=== PATIENT | female | born 1990 | race Caucasian/White ===

== ENCOUNTER 2018-02-24 06:23 | Emergency (ER) | payer SELFPAY ==
--- NOTE | 2018-02-24 06:53 | ED Physician Documentation ---
Sore Throat/Dental Pain - HPI Stated Complaint: sore throat Chief Complaint: Sore Throat Onset: days ago (5) Context: Possible Infection Associated Symptoms: chills, sore throat, moderate, L ear pain. denies: fever Worsened By: nothing Further Comments: yes (she states she started with sore throat on Sunday. She has had chills and her left ear hurting. She has a strong history of abcess. She is able to swallow her secretions) - ROS CONST: no problems CVS/RESP: denies: shortness of breath GI/: denies: nausea, vomiting MS/SKIN/LYMPH: denies: rash NEURO/PSYCH: denies: headache - PAST HX Past History: tonsillectomy Immunizations: UTD Allergies/Adverse Reactions: Allergies Allergy/AdvReac Type Severity Reaction Status Date / Time latex Allergy Rash Verified 02/24/18 06:58 Home Medications: Ambulatory Orders Medication Instructions Recorded NK [NK] 02/24/18 - SOCIAL HX Smoking History: non-smoker Alcohol Use: none Drug Use: none - FAMILY HX Family History: No - VITAL SIGNS Vital Signs: Vital Signs Temp Pulse Resp BP Pulse Ox 97.9 F 93 H 18 96/62 99 02/24/18 06:23 02/24/18 06:23 02/24/18 06:23 02/24/18 06:23 02/24/18 06:23 - REVIEWED ASSESSMENTS Nursing Assessment Reviewed: Yes Vitals Reviewed: Yes ED Results Lab/Radiology - Orders Orders: ED Orders Category Date Time Status methylPREDNISolone ACETATE [Depo-Medrol] Med 02/24/18 06:56 Once 40 mg IM NOW ONE Sore throat Physical Exam - EXAM General Appearance: no acute distress, alert Head/Neck: head nml inspection, no lymphadenopathy. No: cervical lymphadenopathy Eyes: eyes nml inspection, PERRL Mouth/Throat: lips nml, gums nml, no air way problems, pharyngeal erythema. No : drooling Ear/Nose: nml inspection Respiratory: no resp. distress, breath sounds nml CVS: reg. rate & rhythm, heart sounds nml Abdomen: soft, normal bowel sounds Extremities: non-tender Skin: warm/dry, normal color Neuro/Psych: oriented x3, mood/affect nml Discharge Clincal Impression: Strep sore throat Comments: 1. Clindamycin 300 mg take 1 by mouth TID x 10 days 2. Medrol Dose pack 4 mg - take as directed start 02.25.2018 3. Warm salt water gargles 4. Warm tea with honey 5. Tylenol or Ibuprofen as needed for pain or fever 6. See PCP Sunday 7. Return to ER for any further symptoms of concern Condition: Stable Disposition: 01 HOME, SELF-CARE Decision to Admit: NO Date of Decison to Admit: 02/24/18 Decision Time: 07:02
[2018-02-24 06:55] VITALS: BP 96/62
[2018-02-24] MEDS ORDERED: methylPREDNISolone ACETATE 40 MG/ML VIAL IM ONE (06:56)
== END 2018-02-24 07:09 | disposition home or self-care (01) ==
LOC: ED 06:23
DX: J02.0 Streptococcal pharyngitis (principal)
CPT/HCPCS: 99283; J1030